=== PATIENT | female | born 1965 | race African-American/Black ===

== ENCOUNTER 2017-12-29 10:53 | Day surgery (SDC) | payer OTHER ==
[~2017-12-29] VITALS: Ht 167.6 cm; Wt 102.1 kg
[2017-12-29] MEDS ORDERED: fentaNYL 0.05 MG/ML VIAL ONE (12:24)
[2017-12-29] MEDS ORDERED: MIDAZOLAM 2 MG/2 ML VIAL ONE (12:24)
[2017-12-29] MEDS ORDERED: LIDOCAINE 2% 100 MG/5 ML UJET TP ONE (12:24)
[2017-12-29] MEDS ORDERED: KETOROLAC 30 MG/ML VIAL ONE (12:58)
== END 2017-12-29 13:40 | disposition home or self-care (01) ==
LOC: MDS 10:53 → MMU 11:05 → MDS 13:40
PROVIDERS: ATTEND Internal Medicine Gastroenterology
DX: Z12.11 Encounter for screening for malignant neoplasm of colon (principal); I50.9 Heart failure, unspecified; E66.9 Obesity, unspecified; Z68.36 Body mass index [BMI] 36.0-36.9, adult; Z72.89 Other problems related to lifestyle; K63.89 Other specified diseases of intestine
CPT/HCPCS: 45378; J1885; J2250; J3010